=== PATIENT | male | born 1970 ===

== ENCOUNTER → 2017-10-22 | Outpatient (CLI) | payer OTHER | END | disposition home or self-care (01) | LOC: NUTRICION 14:16 | DX: I10 Essential (primary) hypertension (principal); G47.33 Obstructive sleep apnea (adult) (pediatric); E66.8 Other obesity; G40.802 Other epilepsy, not intractable, without status epilepticus ==

== ENCOUNTER → 2017-12-03 | Outpatient (CLI) | payer OTHER | END | disposition home or self-care (01) | LOC: NUTRICION 09:00 → PPHC 09:00 | DX: E66.8 Other obesity (principal); G40.802 Other epilepsy, not intractable, without status epilepticus; G47.33 Obstructive sleep apnea (adult) (pediatric) ==